=== PATIENT | female | born 2000 | race Caucasian/White ===

== ENCOUNTER 2021-09-28 20:41 | Emergency (ER) | payer BC ==
[~2021-09-28] VITALS: Ht 165.1 cm; Wt 68.2 kg
[2021-09-28 20:50] VITALS: TEMP 97.8
[2021-09-28 21:54] LABS: BASO % 0.3 % (0.0-2.0); EOS # 0.1 K/mm3 (0.0-0.7); EOS % 0.4 % (0.0-4.0); GRAN # 9.7 K/mm3 (1.4-6.5); GRAN % 79.6 % (42.2-75.2); HEMATOCRIT 40.8 % (37.0-47.0); HEMOGLOBIN 13.7 g/dl (12.5-16.0); LYMPH # 1.8 K/mm3 (1.2-3.4); LYMPH % 14.4 % (20.0-51.0); MEAN CELL VOLUME 91 fl (80.0-100.0); MEAN CORPUSCULAR HEMOGLOBIN 31 pg (27-31); MEAN CORPUSCULAR HGB CONC 34 g/dl (33.0-37.0); MEAN PLATELET VOLUME 9.6 fl (7.4-10.4); MONO # 0.6 K/mm3 (0.1-0.6); MONO % 4.9 % (1.7-9.3); PLATELET COUNT 370 K/mm3 (130-400); RED BLOOD COUNT 4.48 M/mm3 (4.10-5.30); REDCELL DISTRIBUTION WIDTH-CV 12.3 % (11.5-14.5)
[2021-09-28 21:58] LABS: ALBUMIN 4.4 gm/dL (3.5-5.0); BILIRUBIN,TOTAL 0.2 mg/dL (0.2-1.2); CALCIUM 8.4 mg/dL (8.4-10.2); CREATININE, serum 0.77 mg/dL (0.57-1.11); POTASSIUM 4.9 mmol/L (3.5-4.5)
[2021-09-28] MEDS ORDERED: ZOFRAN ODT4 MG PO (22:13)
[2021-09-28 22:54] VITALS: BP 130/94; PULSE 69
== END 2021-09-28 23:00 | disposition home or self-care (01) ==
LOC: COL.ER 20:41
PROVIDERS: Personal Emergency Response Attendant
DX: K21.00 Gastro-esophageal reflux disease with esophagitis, without bleeding (principal); Z32.02 Encounter for pregnancy test, result negative
CPT/HCPCS: J2270; J2405; J7030

== ENCOUNTER 2022-03-01 23:40 | Emergency (ER) | payer BC ==
[~2022-03-01] VITALS: Ht 167.6 cm; Wt 72.7 kg
[~2022-03-01 23:40] MED LIST: ZOFRAN ODT4 MG PO
[2022-03-01 23:43] VITALS: TEMP 98.3
[2022-03-02 01:52] VITALS: BP 129/76; PULSE 73
== END 2022-03-02 01:55 | disposition home or self-care (01) ==
LOC: COL.ER 23:40
DX: J06.9 Acute upper respiratory infection, unspecified (principal); F17.290 Nicotine dependence, other tobacco product, uncomplicated; Z20.822 Contact with and (suspected) exposure to COVID-19